=== PATIENT | male | born 1965 | race African-American/Black ===

== ENCOUNTER 2022-05-27 09:47 | Outpatient (CLI) | payer OTHER ==
[2022-05-27 10:43] LABS: Hematocrit 22.9 % (35.5-45.6); Hemoglobin 6.8 gm/dl (11.8-15.2); Mean Corpuscular HGB Conc 30 % (32-34); Mean Corpuscular Volume 72 fl (84-94); Red Blood Count 3.17 M/mm3 (3.65-5.03)
[2022-05-27 10:49] LABS: Platelet Count 72 K/mm3 (140-440); Red Cell Distribution Width 23.2 % (13.2-15.2)
[2022-05-27 11:05] LABS: Alanine Aminotransferase 31 units/L (7-56); Albumin 3.5 g/dL (3.9-5); BUN/Creatinine Ratio 15; Blood Urea Nitrogen 9 mg/dL (9-20); Calcium 8.6 mg/dL (8.4-10.2); Hemolysis Index 0
[2022-05-27 11:36] LABS: Total Cells Counted 100
[2022-05-27 11:39] LABS: Anisocytosis 2+; Hypochromasia 2+; Platelet Estimate Consistent w Auto; Poikilocytosis Few; Schistocytes Rare; Spherocytes Few
== END 2022-05-27 09:48 | disposition home or self-care (01) ==
LOC: LAB 09:47
PROVIDERS: ATTEND Internal Medicine
DX: Z02.71 Encounter for disability determination (principal)
CPT/HCPCS: 36415; 80053; 85007; 85025